=== PATIENT | female | born 1985 | race Caucasian/White ===

== ENCOUNTER 2019-07-09 21:05 | Emergency (ER) | payer BC ==
[2019-07-09 21:46] VITALS: BP 98/45; PULSE 59; TEMP 99.5; BMI 19.7
--- NOTE | 2019-07-09 22:52 | PDOC ---
History of Present Illness - General Chief Complaint: Injury Stated Complaint: FELL, STRUCK GLASS DOOR Time Seen by Provider: 07/09/19 21:41 - History of Present Illness Initial Comments: This otherwise healthy 34-year-old woman presents with 2 lacerations sustained when shower door shattered: Patient tripped and fell into her glass shower door approximately an hour prior to presentation. Glass shattered and patient sustained lacerations of the left hand and right foot. She also had other areas of superficial lacerations (right hand primarily). She denies weakness or numbness in areas distal to the lacerations. no head or neck injury sustained. Patient states that she flushed both wounds with water flow from the tap. No history of poor wound healing or immunocompromise. Patient believes that her most recent tetanus prophylaxis immunization was within the last 10 years (states that she will check with her doctor in the next few days). No known allergies No daily medications No history of smoking; no daily alcohol or other recreational drug use Past History - Past Medical History Allergies/Adverse Reactions: Allergies Allergy/AdvReac Type Severity Reaction Status Date / Time No Known Allergies Allergy Verified 07/09/19 21:27 Home Medications: Ambulatory Orders NK [No Known Home Medication] 07/09/19 COPD: No - Immunization History TDAP Vaccination: Yes (2013) - Psycho Social/Smoking Cessation Hx Smoking History: Never smoked Hx Alcohol Use: No Drug/Substance Use Hx: No Review of Systems - Review of Systems Able to Perform ROS?: Yes Comments:: 12 point review of systems is negative except for what is noted in the history of present illness *Physical Exam - Vital Signs Last Vital Signs Temp Pulse Resp BP Pulse Ox 99.5 F 59 L 16 98/45 L 100 07/09/19 21:26 07/09/19 21:26 07/09/19 21:26 07/09/19 21:26 07/09/19 21:26 - Physical Exam GENERAL: Adult female, alert and oriented x3, no acute distress HEAD: Normal with no signs of trauma. EYES: PERRLA, EOMI, sclera anicteric, conjunctiva clear. EXTREMITIES: Left hand1 cm linear full-thickness laceration dorsal surface of the thumb MCP joint; no other injury to the finger Motor and sensory function intact distal to laceration Right foot0.5 cm stellate full-thickness laceration dorsal surface of proximal foot; no other injury to foot Motor and sensory functioning intact distal to the laceration Remainder the extremity exam is normal NEUROLOGICAL: Cranial nerves II through XII grossly intact. Normal speech. No focal neurological deficits SKIN: Warm, Dry, normal turgor, no rashes or lesions noted except that noted above. Because of the presence of small pieces of glass after shower door shattered, x- ray of left hand and right foot obtained: Preliminary interpretation of x-ray- No evidence of foreign body or other abnormality Procedures - Laceration/Wound Repair Left Proximal Dorsal Hand 1st digit Wound Length: to 2.5 cm Wound Explored: clean Wound's Depth, Shape: linear Irrigated w/ Saline: Yes Betadine Prep: No (Hibiclens/ethanol) Anesthesia: 1% Lidocaine Amount of Anesthetic (ccs): 2 Wound Repaired With: Sutures Suture Size/Type: 4:0 Number of Sutures: 4 Layer Closure: No Sterile Dressing Applied: Yes Splint Applied: No Progress: Area around left thumb laceration prepped using Hibiclens/ethanol and sterilely draped. 2 mL of 1% lidocaine infiltrated into the wound for local anesthesia. Wound thoroughly irrigated using 60 mL of sterile normal saline. Base of the wound was explored: No evidence of foreign body or tendon disruption seen. Wound was closed with 4 interrupted sutures of 4-0 nylon. Bacitracin applied to the wound surface. Patient tolerated procedure well Right Proximal Dorsal Foot Wound Length: to 2.5 cm Wound Explored: clean Wound's Depth, Shape: stellate Irrigated w/ Saline: Yes Betadine Prep: No (Hibiclens/ethanol) Anesthesia: 1% Lidocaine Amount of Anesthetic (ccs): 2 Wound Repaired With: Sutures Suture Size/Type: 4:0 Number of Sutures: 3 Layer Closure: No Sterile Dressing Applied: Yes Progress: Area around right foot laceration cleansed using Hibiclens/ethanol and sterilely draped. 2 mL of 1% lidocaine infiltrated into the wound for local anesthesia. Wound thoroughly irrigated using 60 mL of sterile normal saline. Base of wound examined: No evidence of foreign body or tendon/vascular disruption. Wound was primarily closed using 3 interrupted sutures of 4-0 nylon. Bacitracin and sterile gauze applied. Patient tolerated procedure well ED Progress Note - Progress Note Progress Note: As noted above, this 34-year-old woman, otherwise healthy presents with 2 lacerations sustained just prior to presentation when her shower door shattered when she accidentally slipped and fell into it. Lacerations as noted are on the left hand (base of thumb) and proximal right foot. No evidence of neurovascular compromise on exam. Repair as noted above. Patient will check with her doctor regarding her tetanus immunization status ( believes she has been vaccinated within the last 10 years) She will keep the original dressings in place for 48 hours as dry as possible. After that, she will need use protective covering when the wounds could possibly be reinjured but otherwise she will leave wounds open to air. Patient will return or see your doctor if signs of infection occur Sutures should be removed on July 15. She can either return here or see her general doctor for removal of the sutures. Discharge - Discharge Information Problems reviewed: Yes Clinical Impression/Diagnosis: Laceration of left hand Qualifiers: Encounter type: initial encounter Foreign body presence: without foreign body Qualified Code(s): S61.412A - Laceration without foreign body of left hand, initial encounter Laceration of right foot Qualifiers: Encounter type: initial encounter Qualified Code(s): S91.311A - Laceration without foreign body, right foot, initial encounter Condition: Stable Disposition: HOME - Follow up/Referral - Patient Discharge Instructions Patient Printed Discharge Instructions: How to Care for a Laceration After Repair Additional Instructions: Keep original bandages intact, as dry as possible, for 48 hours After 48 hours, use protective dressing (bacitracin/Band-Aid) on wound when active/leave open otherwise Elevate wounds as much as possible for the first 1 to 2 days Return or see your doctor if wounds become more swollen/red/painful Have sutures removed on July 15 - Post Discharge Activity
== END 2019-07-10 00:19 | disposition home or self-care (01) ==
LOC: FER 21:05
PROC: 0HQGXZZ Repair Left Hand Skin, External Approach (ICD-10-PCS; principal; 2019-07-09)
DX: S61.412A Laceration without foreign body of left hand, initial encounter (principal); W22.8XXA Striking against or struck by other objects, initial encounter; Y93.E1 Activity, personal bathing and showering; Y92.89 Other specified places as the place of occurrence of the external cause
CPT/HCPCS: 73130-TC-LT-FY; 73130-TC-RT-FY; 73630-TC-RT-FY; 99283-25